=== PATIENT | male | born 1955 | race Caucasian/White ===

== ENCOUNTER → 2024-08-22 13:32 | Outpatient (REF) | payer MEDICARE, OTHER, SELFPAY | LOC: DHSLP 13:32 | PROVIDERS: ATTENDING PHYSICIAN Family Medicine | DX: G47.33 Obstructive sleep apnea (adult) (pediatric) (principal) | CPT/HCPCS: 95800 ==

== ENCOUNTER → 2024-10-16 06:36 | Outpatient (REF) | payer MEDICARE, OTHER, SELFPAY | LOC: RAD 06:36 | PROVIDERS: ATTENDING PHYSICIAN Family Medicine | DX: D68.59 Other primary thrombophilia (principal); E78.2 Mixed hyperlipidemia; Z87.891 Personal history of nicotine dependence; Z13.6 Encounter for screening for cardiovascular disorders; G45.9 Transient cerebral ischemic attack, unspecified | CPT/HCPCS: 76770; 93880 ==